=== PATIENT | female | born 1990 ===

== ENCOUNTER 2017-05-22 15:59 | Emergency (ER) | payer SELFPAY ==
[~2017-05-22] VITALS: Ht 167.6 cm; Wt 70.0 kg
[2017-05-22 16:01] VITALS: BP 109/63; PULSE 104; RESP 22; TEMP 103; O2SAT 98
[2017-05-22] MEDS ORDERED: AMOXICILLIN 875 MG TAB PO ONE ×2 (17:00)
[2017-05-22] MEDS ORDERED: IBUPROFEN 800 MG TAB PO ONE ×2 (17:00)
--- NOTE | 2017-05-22 17:05 | PD ---
HPI Chief Complaint: Cold / Flu Symptoms Time Seen by Provider: 17:00 Travel History International Travel<30 days: No Contact w/Intl Traveler<30days: No Traveled to known affect area: No History of Present Illness HPI 27-year-old Afro-Citizen Of [place] female with sudden onset of severe sore throat, fever , nausea. Patient states her daughter was sick last week with similar symptoms and treated. Patient has history of strep in the past. She says it feels like. Pain is currently 10 over 10. She states no known drug allergies. PFSH Past Medical History Asthma: Yes ?: Not Social History Alcohol Use: No Tobacco Use: No Substance Use: No Allergies-Medications (Allergen,Severity, Reaction): Coded Allergies: No Known Allergies (Unverified , 05/02/17) Reported Meds & Prescriptions Reported Meds & Active Scripts Active No Active Prescriptions or Reported Medications Review of Systems Except as stated in HPI: all other systems reviewed are Neg General / Constitutional: Positive: Fever, Chills Eyes: No: Visual changes HENT: Positive: Sore Throat, No: Headaches, Rhinitis, Rhinorrhea, Congestion, Nosebleed, Neck Stiffness, Neck Pain, Dental Difficulties, Earache Cardiovascular: No: Chest Pain or Discomfort Respiratory: No: Cough, Shortness of Breath, Wheezing Gastrointestinal: Positive: Nausea, No: Vomiting, Diarrhea, Abdominal Pain Genitourinary: No: Dysuria Musculoskeletal: No: Pain Skin: No Rash Neurologic: No: Weakness Psychiatric: No: Depression Endocrine: No: Polydipsia Hematologic/Lymphatic: No: Easy Bruising Physical Exam Narrative GENERAL: Patient is in [id number] distress SKIN: Warm and dry. Normal color. Normal turgor. HEAD: Atraumatic. Normocephalic. EYES: Pupils equal and round. No scleral icterus. No injection or drainage. ENT: No nasal bleeding or discharge. Mucous membranes pink and moist. TMs are clear bilaterally. Posterior pharynx is red without significant tonsillitis or signs of abscess. Uvula is midline. Normal sounding voice. No sinus tenderness. NECK: Trachea midline. Supple and nontender without significant lymphadenopathy. CARDIOVASCULAR: Regular rate and rhythm. RESPIRATORY: No accessory muscle use. Clear to auscultation. Breath sounds equal bilaterally. GASTROINTESTINAL: Abdomen soft, non-tender, nondistended. Hepatic and splenic margins not palpable. MUSCULOSKELETAL: Extremities without clubbing, cyanosis, or edema. No obvious deformities. NEUROLOGICAL: Awake and alert. No obvious cranial nerve deficits. Motor grossly within normal limits. Five out of 5 muscle strength in the arms and legs. Normal speech. PSYCHIATRIC: Appropriate mood and affect; insight and judgment normal. Data Data Last Documented VS Vital Signs Date Time Temp Pulse Resp B/P (MAP) Pulse Ox O2 Delivery O2 Flow Rate FiO2 05/22/17 16:01 103.0 104 22 109/63 (78) 98 MDM Medical Decision Making Medical Screen Exam Complete: Yes Emergency Medical Condition: Yes Differential Diagnosis Sore throat. Fever. Pharyngitis. Presumed strep. Narrative Course Patient is given 800 mg ibuprofen by mouth now. Patient is given amoxicillin 875 mg now. Patient be continued on amoxicillin 875 twice a day 10 days. Patient is given ibuprofen 600 mg 4 times a day #40. Patient is to rest and push fluids and ice chips. Work note is given for the next 2 days. Patient follow up if symptoms do not improve or worsen in the next several days. Diagnosis Primary Impression: Pharyngitis, acute Qualified Codes: J02.0 - Streptococcal pharyngitis Additional Impression: Fever Qualified Codes: R50.9 - Fever, unspecified Referrals: [facility] Primary Care Physician Patient Instructions: General Instructions, Pharyngitis (ED) Departure Forms: Work Release Enter return to work date: May 24, 2017 Additional Instructions: Patient is given 800 mg ibuprofen by mouth now. Patient is given amoxicillin 875 mg now. Patient be continued on amoxicillin 875 twice a day 10 days. Patient is given ibuprofen 600 mg 4 times a day #40. Patient is to rest and push fluids and ice chips. Work note is given for the next 2 days. Patient follow up if symptoms do not improve or worsen in the next several days. Med/Other Pt SpecificInfo: Prescription(s) given Scripts No Active Prescriptions or Reported Meds Disposition: 01 DISCHARGE HOME Condition: Stable Gadiel Brooks May 22, 2017 17:05
[2017-05-22] MEDS ORDERED: AMOX875T PO ×2 (17:16)
[2017-05-22] MEDS ORDERED: IBUP-232 PO ×2 (17:16)
== END 2017-05-22 17:27 | disposition home or self-care (01) ==
LOC: NEPK 15:59
DX: J02.0 Streptococcal pharyngitis (principal)
CPT/HCPCS: 99283